=== PATIENT | female | born 1935 | race Caucasian/White ===

== ENCOUNTER 2022-03-22 11:27 | Outpatient (CLI) | payer MEDICARE | END 2022-03-22 11:28 | disposition home or self-care (01) | LOC: CSHRAD 11:27 | PROVIDERS: ATTEND Internal Medicine | DX: M54.31 Sciatica, right side (principal); M47.816 Spondylosis without myelopathy or radiculopathy, lumbar region; M41.9 Scoliosis, unspecified | CPT/HCPCS: 72100 ==

== ENCOUNTER 2022-03-26 09:22 | Emergency (ER) | payer MEDICARE ==
[2022-03-26] MEDS ORDERED: Ketorolac Tromethamine 30 MG/ML VIAL ONE (10:11)
== END 2022-03-26 10:58 | disposition home or self-care (01) ==
LOC: CSHERS 09:22
DX: M54.41 Lumbago with sciatica, right side (principal)
CPT/HCPCS: 96372; 99283; J1885

== ENCOUNTER 2022-03-29 05:42 | Emergency (ER) | payer MEDICARE ==
[2022-03-29] MEDS ORDERED: Ketorolac Tromethamine 30 MG/ML VIAL ONE (06:08)
[2022-03-29] MEDS ORDERED: Morphine 4 MG/ML VIAL ONE (06:08)
== END 2022-03-29 07:55 | disposition home or self-care (01) ==
LOC: CSHERS 05:42
DX: M54.50 Low back pain, unspecified (principal); Z87.891 Personal history of nicotine dependence
CPT/HCPCS: 96372; 99283; J1885; J2270

== ENCOUNTER 2022-03-30 23:45 | Inpatient (IN) | payer MEDICARE ==
[2022-03-31] MEDS ORDERED: Dexamethasone 10 MG/ML VIAL ONE (00:33)
[2022-03-31] MEDS ORDERED: Dexamethasone 4 mg/ml Vial ONE (00:34)
[2022-03-31] MEDS ORDERED: Ketorolac Tromethamine 30 MG/ML VIAL ONE ×2 (00:34→06:12)
[2022-03-31 03:51] LABS: #Eosinphils 0.1 10x3/uL (0.0-0.5); #Monocytes 0.4 10x3/uL (0.0-1.1); #Neutrophils 10.8 10x3/uL (1.5-8.4); %Basophils 0.1 % (0.0-2.0); %Eosinophils 0.5 % (0.0-6.0); %Lymphocytes 5.2 % (18.0-47.0); %Monocytes 2.9 % (0.0-10.0); Bilirubin Neg (Negative); Blood, Urine 25 (Negative); Clarity Clear (Clear); Glucose, Urine (Dipstick) Normal (Negative); Ketone, Urine 50 mg/dL (Negative); Leukocyte 500 (Negative); Mean Corpuscular HGB CONC 33.2 g/dL (32.0-36.0); Mean Corpuscular Volume 87.1 fl (81.6-98.3); Mean Platelet Volume 10.3 fl (7.4-10.4); Nitrite Negative (Negative); Platelet Count 268 10x3/uL (150-450); Protein, Urine (Dipstick) 30 mg/dl (Neg-Trace); RBC Distribution Width 12.8 % (11.5-14.5); Red Blood Cell (RBC) Count 4.49 10x6/uL (3.90-5.03); Specific Gravity, Urine 1.005 (1.002-1.036); Urobilinogen Normal mg/dL (Less than 2); White Blood Cell (WBC) Count 11.9 10x3/uL (3.5-10.5); pH, Urine 6.5 (5.0-9.0)
[2022-03-31 04:01] LABS: ALT (SGPT) 21 U/L (8-55); AST (SGOT) 24 U/L (5-34); Albumin 3.7 g/dL (3.4-4.8); Alkaline Phosphatase 172 U/L (40-110); Anion Gap 15 mmol/L (10-20); BUN (Urea Nitrogen) 12 mg/dL (9.8-20.1); Bilirubin, Total 1.3 mg/dL (0.2-1.2); Calc. Creatinine Clearance 0 mL/min (70-130); Calcium 9.7 mg/dL (7.8-10.44); Carbon Dioxide 22 mmol/L (23-31); Chloride 109 mmol/L (98-107); Estimated GFR 80; Globulin 3.1 g/dL (2.4-3.5); Glucose 127 mg/dL (83-110); Protein, Total 6.8 g/dL (5.8-8.1); Sodium 142 mmol/L (136-145)
[2022-03-31 04:07] LABS: Bacteria/HPF 1+ HPF (None Seen); Squamous Epithelial 0-3 HPF (0-3)
[2022-03-31 04:12] VITALS: BMI 25.8
[2022-03-31] MEDS ORDERED: Ondansetron PF 4 MG/2 ML Vial IVP PRN (05:14)
[2022-03-31] MEDS ORDERED: Acetaminophen 325 MG TAB PO PRN (05:14)
[2022-03-31] MEDS ORDERED: Senokot S 8.6-50 MG TAB PO PRN (05:14)
[2022-03-31] MEDS ORDERED: Calcium Carbonate 500 MG ChewTAB PO PRN (05:14)
[2022-03-31 05:54] LABS: Free T4 (Free Thyroxine) 1.35 ng/dL (0.70-1.48); Thyroid Stimulating Hormone 1.14 uIU/mL (0.35-4.94)
[2022-03-31] MEDS ORDERED: Lactated Ringer's 500 ML IV SCH (06:00)
[2022-03-31] MEDS ORDERED: cefTRIAXone\\ROCEPHIN 1 GM VIAL ONE (06:12)
[2022-03-31] MEDS: Ketorolac Tromethamine 30 MG/ML VIAL IVP SCH ×2 (06:12→16:04)
[2022-03-31] MEDS: cefTRIAXone\\ROCEPHIN 1 GM in Sodium Chloride 0.9% 100 ML IVPB SCH (06:13)
[2022-03-31] MEDS: Enoxaparin Sodium 40 MG/0.4 ML SYRINGE SC SCH (09:00)
[2022-03-31] MEDS: Famotidine 20 MG TAB PO SCH ×2 (09:00→20:10)
[2022-03-31] MEDS: Polyethylene Glycol 3350 17 GM Packet PO SCH (11:18)
[2022-03-31 14:24] LABS: Hemoglobin 12.4 g/dL (12.0-15.5); Mean Corpuscular HGB CONC 33.4 g/dL (32.0-36.0); Mean Corpuscular Hemoglobin 28.8 pg (27.0-33.0); Mean Corpuscular Volume 86.1 fl (81.6-98.3); Platelet Count 264 10x3/uL (150-450); RBC Distribution Width 12.8 % (11.5-14.5); Red Blood Cell (RBC) Count 4.31 10x6/uL (3.90-5.03); White Blood Cell (WBC) Count 10.4 10x3/uL (3.5-10.5)
[2022-03-31 14:27] LABS: ALT (SGPT) 23 U/L (8-55); AST (SGOT) 23 U/L (5-34); Albumin 3.5 g/dL (3.4-4.8); Alkaline Phosphatase 153 U/L (40-110); Anion Gap 13 mmol/L (10-20); BUN (Urea Nitrogen) 14 mg/dL (9.8-20.1); Bilirubin, Total 0.6 mg/dL (0.2-1.2); Calc. Creatinine Clearance 72 mL/min (70-130); Calcium 9.3 mg/dL (7.8-10.44); Carbon Dioxide 23 mmol/L (23-31); Chloride 109 mmol/L (98-107); Estimated GFR 84; Globulin 2.8 g/dL (2.4-3.5); Glucose 186 mg/dL (83-110); Potassium 3.7 mmol/L (3.5-5.1); Protein, Total 6.3 g/dL (5.8-8.1); Sodium 141 mmol/L (136-145)
[2022-03-31 14:41] LABS: MDiff Complete? YES
[2022-03-31 16:19] LABS: Lymphocytes 5 % (21-51); Monocytes 4 % (0-10); Neutrophil 91 % (42-75)
[2022-03-31 16:20] LABS: Platelet Morphology Comment Appears Adequate
[2022-03-31] MEDS: HYDROcodone/Acetaminophen 5/325 mg Tablet PO PRN (20:17)
[2022-04-01] MEDS: HYDROcodone/Acetaminophen 5/325 mg Tablet PO PRN ×4 (04:29→18:55)
[2022-04-01] MEDS: cefTRIAXone\\ROCEPHIN 1 GM in Sodium Chloride 0.9% 100 ML IVPB SCH (05:52)
[2022-04-01] MEDS: Enoxaparin Sodium 40 MG/0.4 ML SYRINGE SC SCH (09:10)
[2022-04-01] MEDS: Famotidine 20 MG TAB PO SCH ×2 (09:11→21:22)
[2022-04-01] MEDS: Polyethylene Glycol 3350 17 GM Packet PO SCH (09:36)
[2022-04-01 09:40] LABS: #Monocytes 0.7 10x3/uL (0.0-1.1); #Neutrophils 8.7 10x3/uL (1.5-8.4); %Basophils 0.2 % (0.0-2.0); %Eosinophils 0.2 % (0.0-6.0); %Lymphocytes 14.8 % (18.0-47.0); %Monocytes 6.1 % (0.0-10.0); %Neutrophils 78.2 % (40.0-75.0); Hemoglobin 12.4 g/dL (12.0-15.5); Mean Corpuscular HGB CONC 32.6 g/dL (32.0-36.0); Mean Corpuscular Hemoglobin 28.9 pg (27.0-33.0); Mean Corpuscular Volume 88.6 fl (81.6-98.3); Mean Platelet Volume 10.4 fl (7.4-10.4); Platelet Count 292 10x3/uL (150-450); RBC Distribution Width 12.8 % (11.5-14.5); Red Blood Cell (RBC) Count 4.29 10x6/uL (3.90-5.03); White Blood Cell (WBC) Count 11.1 10x3/uL (3.5-10.5)
[2022-04-01 09:55] LABS: ALT (SGPT) 25 U/L (8-55); AST (SGOT) 30 U/L (5-34); Albumin 3.5 g/dL (3.4-4.8); Alkaline Phosphatase 150 U/L (40-110); Anion Gap 16 mmol/L (10-20); BUN (Urea Nitrogen) 15 mg/dL (9.8-20.1); Bilirubin, Total 0.6 mg/dL (0.2-1.2); Calc. Creatinine Clearance 68 mL/min (70-130); Calcium 9.5 mg/dL (7.8-10.44); Carbon Dioxide 23 mmol/L (23-31); Chloride 108 mmol/L (98-107); Estimated GFR 80; Globulin 2.8 g/dL (2.4-3.5); Glucose 109 mg/dL (83-110); Magnesium 2.1 mg/dL (1.6-2.6); Potassium 3.7 mmol/L (3.5-5.1); Protein, Total 6.3 g/dL (5.8-8.1); Sodium 143 mmol/L (136-145)
[2022-04-01 15:26] LABS: Hemoglobin A1c 5.4 % (4.0-6.0)
[2022-04-02 04:26] LABS: #Eosinphils 0.2 10x3/uL (0.0-0.5); #Monocytes 0.5 10x3/uL (0.0-1.1); #Neutrophils 3.2 10x3/uL (1.5-8.4); %Basophils 0.3 % (0.0-2.0); %Lymphocytes 35.3 % (18.0-47.0); %Monocytes 7.8 % (0.0-10.0); %Neutrophils 53.3 % (40.0-75.0); Hemoglobin 11.6 g/dL (12.0-15.5); Mean Corpuscular HGB CONC 32.1 g/dL (32.0-36.0); Mean Corpuscular Hemoglobin 28.8 pg (27.0-33.0); Mean Corpuscular Volume 89.6 fl (81.6-98.3); Mean Platelet Volume 10.2 fl (7.4-10.4); Platelet Count 293 10x3/uL (150-450); RBC Distribution Width 12.8 % (11.5-14.5); Red Blood Cell (RBC) Count 4.03 10x6/uL (3.90-5.03)
[2022-04-02 04:49] LABS: ALT (SGPT) 27 U/L (8-55); AST (SGOT) 29 U/L (5-34); Alkaline Phosphatase 131 U/L (40-110); Anion Gap 13 mmol/L (10-20); BUN (Urea Nitrogen) 17 mg/dL (9.8-20.1); Bilirubin, Direct 0.2 mg/dL (0.1-0.3); Bilirubin, Total 0.5 mg/dL (0.2-1.2); Calc. Creatinine Clearance 70 mL/min (70-130); Carbon Dioxide 24 mmol/L (23-31); Cardiac Risk 3.7 (Less than 4.5); Chloride 109 mmol/L (98-107); Cholesterol 159 mg/dl (< 200 Desired); Estimated GFR 82; Glucose 92 mg/dL (83-110); HDL Cholesterol 43 mg/dL (>60 Neg Risk); LDL Cholesterol, Calculated 90 mg/dL; Potassium 3.7 mmol/L (3.5-5.1); Protein, Total 5.5 g/dL (5.8-8.1); Sodium 142 mmol/L (136-145); Triglycerides 129 mg/dL (Less than 150)
[2022-04-02] MEDS: cefTRIAXone\\ROCEPHIN 1 GM in Sodium Chloride 0.9% 100 ML IVPB SCH (06:06)
[2022-04-02] MEDS: HYDROcodone/Acetaminophen 5/325 mg Tablet PO PRN ×2 (06:15→18:25)
[2022-04-02] MEDS: Enoxaparin Sodium 40 MG/0.4 ML SYRINGE SC SCH (08:59)
[2022-04-02] MEDS: Polyethylene Glycol 3350 17 GM Packet PO SCH (09:00)
[2022-04-02] MEDS: Famotidine 20 MG TAB PO SCH ×2 (09:00→21:02)
[2022-04-03] MEDS: cefTRIAXone\\ROCEPHIN 1 GM in Sodium Chloride 0.9% 100 ML IVPB SCH (05:09)
[2022-04-03 05:41] LABS: Anion Gap 13 mmol/L (10-20); BUN (Urea Nitrogen) 14 mg/dL (9.8-20.1); Calc. Creatinine Clearance 68 mL/min (70-130); Calcium 9.5 mg/dL (7.8-10.44); Carbon Dioxide 26 mmol/L (23-31); Chloride 107 mmol/L (98-107); Estimated GFR 80; Glucose 101 mg/dL (83-110); Magnesium 2.2 mg/dL (1.6-2.6); Potassium 4.1 mmol/L (3.5-5.1); Sodium 142 mmol/L (136-145)
[2022-04-03] MEDS: HYDROcodone/Acetaminophen 5/325 mg Tablet PO PRN ×4 (05:42→18:16)
[2022-04-03] MEDS: traMADol HCl 50 MG TAB PO PRN ×2 (08:57→18:15)
[2022-04-03] MEDS: Famotidine 20 MG TAB PO SCH ×2 (08:57→21:05)
[2022-04-03] MEDS: Enoxaparin Sodium 40 MG/0.4 ML SYRINGE SC SCH (08:58)
[2022-04-03] MEDS: Polyethylene Glycol 3350 17 GM Packet PO SCH (08:59)
[2022-04-04 04:43] LABS: Anion Gap 11 mmol/L (10-20); BUN (Urea Nitrogen) 17 mg/dL (9.8-20.1); Calc. Creatinine Clearance 73 mL/min (70-130); Calcium 9.5 mg/dL (7.8-10.44); Carbon Dioxide 26 mmol/L (23-31); Chloride 106 mmol/L (98-107); Estimated GFR 84; Glucose 107 mg/dL (83-110); Magnesium 2.1 mg/dL (1.6-2.6); Potassium 4.2 mmol/L (3.5-5.1); Sodium 139 mmol/L (136-145)
[2022-04-04] MEDS: cefTRIAXone\\ROCEPHIN 1 GM in Sodium Chloride 0.9% 100 ML IVPB SCH (06:36)
[2022-04-04] MEDS: traMADol HCl 50 MG TAB PO PRN ×2 (06:45→11:59)
[2022-04-04] MEDS ORDERED: Lidocaine 5% Patch TD SCH (09:00)
[2022-04-04] MEDS: HYDROcodone/Acetaminophen 5/325 mg Tablet PO PRN (09:50)
[2022-04-04] MEDS: Famotidine 20 MG TAB PO SCH (09:50)
[2022-04-04] MEDS: Enoxaparin Sodium 40 MG/0.4 ML SYRINGE SC SCH (09:51)
[2022-04-04] MEDS: Polyethylene Glycol 3350 17 GM Packet PO SCH (09:51)
[2022-04-04 11:56] VITALS: BP 140/63; TEMP 98.8
[2022-04-04] MEDS ORDERED: Nitrofurantoin Monohyd/M-Cryst 100 MG CAP PO SCH (21:00)
[2022-04-04] MEDS ORDERED: Transdermal Patch Removal TOP SCH (21:00)
== END 2022-04-04 12:00 | disposition swing bed (61) | DRG 543 ==
LOC: CSHERS 23:45 → INTOOBSV 03-31 03:39 → CSHERHOLD 03-31 03:39 → CSHTELE 03-31 14:45 → OBSVTOIN 04-02 08:48
PROVIDERS: ADMIT Student in an Organized Health Care Education/Training Program; ATTEND Family Medicine
DX: M84.48XA Pathological fracture, other site, initial encounter for fracture (principal); N39.0 Urinary tract infection, site not specified; Z20.822 Contact with and (suspected) exposure to COVID-19; K59.00 Constipation, unspecified; G89.29 Other chronic pain; M54.40 Lumbago with sciatica, unspecified side; Z60.2 Problems related to living alone; Z90.49 Acquired absence of other specified parts of digestive tract; Z87.891 Personal history of nicotine dependence; Z79.899 Other long term (current) drug therapy
CPT/HCPCS: 36415; 72131; 72148; 80048; 80053; 80061; 80076; 81003; 81015; 83036; 83735; 84439; 84443; 85025; 87077; 87086; 87186; 93005; 96372; 96373; 96375; 96376; G0378; J0696; J1100; J1650; J1885; J3490; J7120; U0003; U0005